=== PATIENT | male | born 1985 | race Caucasian/White ===

== ENCOUNTER 2024-05-06 17:53 | Emergency (ER) | payer OTHER, SELFPAY ==
[2024-05-06 18:40] LABS: PT Prothrombin Time 12.9 SECONDS (9.4-12.5); Protime INR 1.16
[2024-05-06 18:42] LABS: Absolute Lymphocytes (CBC) 0.8 K/uL (0.7-4.9); Absolute Monocytes 0.2 K/uL (0.1-1.3); Absolute Neutrophil 6.8 K/uL (1.8-8.0); Basophils % 0.1 % (0-1.3); Hematocrit 45.5 % (39.6-49.0); Lymphocytes % 10.6 % (15.3-44.8); MCH 32.4 pg (27.0-35.0); MCHC 35.3 g/dL (32.0-36.0); MPV 8.9 fL (7.6-11.3); Monocytes % 2.1 % (3.3-12.3); Neutrophils % 87.2 % (41.7-73.7); Nucleated Red Blood Cells % 0.1 % (0-0); Platelets 243 thou/uL (152-406); RBC Red Blood Cell Count 4.94 M/uL (4.33-5.43); Red Cell Distribution Width 12.8 % (12.1-15.2)
[2024-05-06 18:54] LABS: Albumin 4.1 g/dL (3.4-5.0); Anion Gap 11.9 mEq/L (5.0-15.0); Bilirubin Direct 0.3 mg/dL (0-0.2); Bilirubin Indirect, Calculated 0.7 mg/dL (0.2-0.8); Globulin 4.2 g/dL (2.3-3.5); Potassium 3.9 mEq/L (3.5-5.1); Protein, Total 8.3 g/dL (6.4-8.2); Troponin High Sensitivity 14.9 pg/mL (<58.9)
--- NOTE | 2024-05-06 19:07 | RAD REPORT ---
EXAM: Chest Single View HISTORY: CHEST PAIN COMPARISON: None. FINDINGS: LUNGS/PLEURA: The lungs are clear. No pleural effusions or pneumothorax. No pulmonary edema. MEDIASTINUM: The mediastinal silhouette is within normal limits. CARDIAC: The cardiac silhouette is within normal limits. UPPER ABDOMEN: No significant abnormality. BONES: No acute fracture. LINES/TUBES/OTHER: N/A IMPRESSION: No evidence of acute cardiopulmonary disease.
[2024-05-06] MEDS ORDERED: MAGNES/ALUMIN/SIMET 30ML UCUP ONE (20:05)
[2024-05-06] MEDS ORDERED: ONDANSETRON 4 MG/2 ML VIAL ONE (20:05)
[2024-05-06] MEDS ORDERED: KETOROLAC 30 MG/ML INJ ONE (20:06)
[2024-05-06] MEDS ORDERED: LIDOCAINE VISCOUS 2% 10ML ORAL SOLN ONE (20:06)
[2024-05-06] MEDS ORDERED: NA CHLORIDE 0.9% 1,000 ML ONE (20:06)
--- NOTE | 2024-05-06 21:24 | ER ---
Nurse's Notes [facility] Name: Raj Case Age: 38 yrs Sex: Male : 1985 Arrival Date: 05/06/2024 Time: 17:53 Bed 14 Private MD: Diagnosis: Subsequent non-ST elevation (NSTEMI) myocardial infarction Presentation: 05/06 18:09 Chief complaint: Patient states: c/o left chest pain that radiates to left shoulder me1 with some associated nausea. 5/10 "pressure" that started about 30 minutes ago while having a bowel movement. 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 Coronavirus screen: Vaccine status: Patient reports receiving the 1st dose of the Covid vaccine. Ebola Screen: No symptoms or risks identified at this time. Initial Sepsis Screen: Does the patient meet any 2 criteria? No. Patient's initial sepsis screen is negative. Does the patient have a suspected source of infection? No. Patient's initial sepsis screen is negative. Risk Assessment: Do you want to hurt yourself or someone else? Patient reports no desire to harm self or others. Onset of symptoms was May 06, 2024 at 17:30. 18:09 Method Of Arrival: Ambulatory wa1 18:09 Acuity: AMAURY 3 me1 Triage Assessment: 18:11 General: Appears uncomfortable, well groomed, well developed, well nourished, Behavior me1 is calm, cooperative, appropriate for age. Pain: Complains of pain in anterior aspect of left upper chest Pain radiates to anterior aspect of left shoulder Pain currently is 5 out of 10 on a pain scale. Quality of pain is described as pressure, Pain began suddenly, 30 min ago. Is continuous. EENT: No signs and/or symptoms were reported regarding the EENT system. Neuro: Level of Consciousness is awake, alert, obeys commands, Oriented to person, place, time, situation, Appropriate for age. Cardiovascular: Patient's skin is warm and dry. Respiratory: Airway is patent Respiratory effort is even, unlabored, Respiratory pattern is regular, symmetrical. GI: Reports nausea. : No signs and/or symptoms were reported regarding the genitourinary system. Derm: Skin is intact, is healthy with good turgor, Skin is pink, warm \\T\\ dry. Musculoskeletal: No signs and/or symptoms reported regarding the musculoskeletal system. Historical: - Allergies: 18:11 No Known Allergies; me1 - Home Meds: 18:11 None [Active]; me1 - PMHx: 18:11 None; me1 - PSHx: 18:11 None; me1 - Immunization history:: Adult Immunizations up to date. - Infectious Disease History:: Denies. - Social history:: Smoking status: Patient denies any tobacco usage or history of. Screenin:13 [facility] ED Fall Risk Assessment (Adult) History of falling in the last 3 months, me1 including since admission No falls in past 3 months (0 pts) Confusion or Disorientation No (0 pts) Intoxicated or Sedated No (0 pts) Impaired Gait No (0 pts) Mobility Assist Device Used No (0 pt) Altered Elimination No (0 pt) Score/Fall Risk Level 0 - 2 = Low Risk Maintained a safe environment, Provided non-skid footwear, Hourly rounding (assess needs \\T\\ fall precautionary measures) done. Abuse screen: Denies threats or abuse. Nutritional screening: No deficits noted. Tuberculosis screening: No symptoms or risk factors identified. Assessment: 18:13 General: See triage assessment.. me1 19:10 General: Appears in no apparent distress. comfortable, Behavior is calm, cooperative, rg5 appropriate for age. 19:10 Pain: Complains of pain in chest Pain currently is 3 out of 10 on a pain scale. Quality rg5 of pain is described as pressure. Neuro: Level of Consciousness is awake, alert, obeys commands, Oriented to person, place, time. Cardiovascular: Reports chest pain. Respiratory: Airway is patent Trachea midline Respiratory effort is even, unlabored, Respiratory pattern is regular, symmetrical. GI: Abdomen is round non-distended, obese. : No signs and/or symptoms were reported regarding the genitourinary system. EENT: No deficits noted. Derm: No deficits noted. Skin is intact, Skin is dry, Skin is normal, Skin temperature is warm. Musculoskeletal: Circulation, motion, and sensation intact. Capillary refill < 3 seconds, Range of motion: intact in all extremities. 20:30 Reassessment: Patient and/or family updated on plan of care and expected duration. Pain rg5 level reassessed. Patient is alert, oriented x 3, equal unlabored respirations, skin warm/dry/pink. Patient states feeling better. Patient states symptoms have improved. 21:24 Pain: Denies pain. rg5 21:25 Reassessment: Patient is alert, oriented x 3, equal unlabored respirations, skin rg5 warm/dry/pink. Patient states feeling better. Patient states symptoms have improved. 22:00 Reassessment: TROPONIN WAS HIGH AND HE WAS CALLED BACK TO ER. rg5 22:00 General: Appears in no apparent distress. comfortable, Behavior is calm, cooperative, rg5 appropriate for age. 22:00 Pain: Denies pain. Neuro: Level of Consciousness is awake, alert, obeys commands, rg5 Oriented to person, place, time. Cardiovascular: Denies chest pain. Respiratory: Airway is patent Trachea midline Respiratory effort is even, unlabored, Respiratory pattern is regular, symmetrical. GI: Abdomen is non-distended, obese. : No signs and/or symptoms were reported regarding the genitourinary system. EENT: No deficits noted. Derm: Skin is intact, Skin is normal, Skin temperature is warm. Musculoskeletal: Circulation, motion, and sensation intact. Capillary refill < 3 seconds, Range of motion: intact in all extremities. 23:30 Reassessment: No changes from previously documented assessment. Patient and/or family rg5 updated on plan of care and expected duration. Pain level reassessed. Patient is alert, oriented x 3, equal unlabored respirations, skin warm/dry/pink. 05/07 00:30 Reassessment: Patient and/or family updated on plan of care and expected duration. Pain rg5 level reassessed. Patient is alert, oriented x 3, equal unlabored respirations, skin warm/dry/pink. 00:30 Pain: Denies pain. rg5 Vital Signs: 05/06 18:09 BP 153 / 91; Pulse 94; Resp 18; Temp 98.8; Pulse Ox 99% ; Weight 145.15 kg; Height 6 me1 ft. 2 in. ; Pain 5/10; 19:15 BP 96 / 61; Pulse 75; Resp 18; Pulse Ox 97% on R/A; Pain 3/10; rg5 20:30 BP 128 / 85; Pulse 74; Resp 17; Pulse Ox 96% on R/A; Pain 2/10; rg5 21:10 BP 121 / 80; Pulse 75; Resp 17; Temp 98; Pulse Ox 99% on R/A; Pain 0/10; rg5 22:00 BP 146 / 88; Pulse 87; Resp 17; Temp 98; Pulse Ox 99% on R/A; Pain 0/10; rg5 22:28 Weight 141.2 kg; vc1 23:40 BP 145 / 88; Pulse 74; Resp 17; Temp 98(O); Pulse Ox 99% on R/A; Pain 0/10; rg5 18:09 Body Mass Index 41.09 (141.20 kg, 187.96 cm) me1 18:09 Pain Scale: Adult me1 19:15 Pain Scale: Adult rg5 20:30 Pain Scale: Adult rg5 21:10 Pain Scale: Adult rg5 22:00 Pain Scale: Adult rg5 23:40 Pain Scale: Adult rg5 ED Course: 17:55 Patient arrived in ED. ra3 18:05 Kaylan Arevalo, RN is Primary Nurse. me1 18:11 Triage completed. me1 18:11 Arm band placed on Patient placed in an exam room. me1 18:13 Patient has correct armband on for positive identification. Bed in low position. Call me1 light in reach. Side rails up X2. Provided Education on: POC. Verbalized understanding.. Client placed on continuous cardiac and pulse oximetry monitoring. NIBP monitoring applied. caramel coloring operator on. Pulse ox on. NIBP on. 18:13 No provider procedures requiring assistance completed. Patient maintains SpO2 me1 saturation greater than 95% on room air. 18:20 Inserted saline lock: 22 gauge in left hand, using aseptic technique. Blood collected. nh2 Flushed with 10 mL NS. 18:21 Basic Metabolic Panel Sent. nh2 18:21 CBC with Diff Sent. nh2 18:21 LFT's Sent. nh2 18:21 NT PRO-BNP Sent. nh2 18:21 PT-INR Sent. nh2 18:21 Troponin HS Sent. nh2 18:28 Vj Elmore FNP-C is PHCP. dr5 18:28 José Luis Scott MD is Attending Physician. dr5 18:56 XRAY Chest (1 view) In Process Unspecified. EDMS 21:25 IV discontinued, bleeding controlled, No redness/swelling at site. Pressure dressing rg5 applied. 21:53 Attending Physician role handed off by José Luis Scott MD dr5 21:53 Primary Nurse role handed off by Kaylan Arevalo, MISAEL dr5 21:54 Cameron Henry, MISAEL is Primary Nurse. rg5 22:00 Client placed on continuous cardiac and pulse oximetry monitoring. NIBP monitoring rg5 applied. caramel coloring operator on. Pulse ox on. NIBP on. Door closed. Noise minimized. Warm blanket given. Pillow given. Verbal reassurance given. 22:00 Inserted saline lock: 20 gauge in right antecubital area, using aseptic technique. rg5 Blood collected. Flushed with 10 mL NS. 22:07 Leobardo Lee MD is Attending Physician. dr5 22:28 Inserted saline lock: 22 gauge in left forearm, using aseptic technique. Flushed with vc1 10 mL NS. Administered Medications: 20:00 Drug: NS 0.9% IV 1000 ml IV at 1000 ml once; to be given as a bolus over 60 minutes rg5 Route: IV; Rate: 1000 ml; Site: left antecubital; 21:17 Follow up: IV Status: Completed infusion; IV Intake: 1000ml rg5 20:00 Drug: Ketorolac IVP 15 mg IVP once Route: IVP; Site: left antecubital; rg5 21:16 Follow up: Response: No adverse reaction; Pain is decreased rg5 20:00 Drug: Ondansetron IVP 4 mg IVP once; over 2 minutes Route: IVP; Site: left antecubital; rg5 21:16 Follow up: Response: No adverse reaction rg5 20:15 Drug: GI Cocktail without - (Maalox PO 30 ml, Lidocaine Mucous Membrane 2 % 15 rg5 ml) PO once Route: PO; 21:16 Follow up: Response: No adverse reaction rg5 22:13 Drug: Aspirin PO 324 mg PO once Route: PO; rg5 22:59 Follow up: Response: No adverse reaction rg5 22:40 Drug: Heparin ([place] Drip) 12 units/kg/[place] - ([place] [address] units, D5W IV 500 ml) IV at rg5 calculated rate Per protocol; Max initial rate 1000 units/hr {Co-Signature: jj7 (Livia Crawley RN).} Route: IV; Rate: calculated rate; Site: right antecubital; 22:43 Drug: Heparin (AZ-Bolus No thrombolytic) - HEParin IVP 60 units/kg IVP once; Max 5000 rg5 units {Co-Signature: jj7 (Livia Crawley RN).} Route: IVP; Site: left antecubital; 22:59 Follow up: Response: No adverse reaction rg5 23:19 Drug: Ativan IVP 0.5 mg IVP once Route: IVP; Site: left forearm; rg5 Medication: 18:13 VIS not applicable for this client. me1 Intake: 21:17 IV: 1000ml; Total: 1000ml. rg5 Outcome: 21:23 Discharge ordered by MD. dr5 21:25 Discharged to home ambulatory, rg5 21:25 Condition: stable 21:25 Discharge instructions given to patient, family, Instructed on discharge instructions, Demonstrated understanding of instructions, follow-up care, medications, Prescriptions given X 1, 21:30 Patient left the ED. rg5 23:03 ER care complete, transfer ordered by MD. dr5 05/07 00:57 Patient left the ED. rg5 Signatures: Dispatcher [employer] EDHilary Pereyra RN RN vc1 Kaylan Arevalo RN RN wa1 Phyllis Allison 3 Cameron Henry, MISAEL RN rg5 Tremayne Ham, Vj Kee, TILE INSTALLER-C TILE INSTALLER-Cdr5 Livia Crawley RN jj7 Corrections: (The following items were deleted from the chart) 05/06 22:36 22:28 141.9 kg; vc1 vc1
--- NOTE | 2024-05-06 21:24 | EDPHYS ---
Physician Documentation [facility] Name: Raj Case Age: 38 yrs Sex: Male : 1985 Arrival Date: 05/06/2024 Time: 17:53 Bed 14 Private MD: ED Physician Leobardo Lee HPI: 05/06 21:58 This 38 yrs old Male presents to ER via Ambulatory with complaints of Chest dr5 Pain. 21:58 Onset: The symptoms/episode began/occurred today, at 17:30. Associated signs and dr5 symptoms: The patient has no apparent associated signs or symptoms. Patient is a 38-year-old male with no past medical history coming in with chest pain that started while having a bowel movement today. Patient reports he was going to the bathroom after eating canes chicken strips. Patient denies any medical problems or any daily medications.. Historical: - Allergies: 18:11 No Known Allergies; me1 - Home Meds: 18:11 None [Active]; me1 - PMHx: 18:11 None; me1 - PSHx: 18:11 None; me1 - Immunization history:: Adult Immunizations up to date. - Infectious Disease History:: Denies. - Social history:: Smoking status: Patient denies any tobacco usage or history of. ROS: 21:58 Constitutional: as per hpi dr5 Exam: 21:58 Constitutional: This is a well developed, well nourished patient who is awake, alert, dr5 and in no acute distress. Head/Face: Normocephalic, atraumatic. Neck: Trachea midline, no thyromegaly or masses palpated, and no cervical lymphadenopathy. Supple, full range of motion without nuchal rigidity, or vertebral point tenderness. No Meningismus. Chest/axilla: Normal chest wall appearance and motion. Nontender with no deformity. No lesions are appreciated. Cardiovascular: Regular rate and rhythm with a normal S1 and S2. Normal PMI, no JVD. No pulse deficits. Respiratory: Lungs have equal breath sounds bilaterally, clear to auscultation. No rales, rhonchi or wheezes noted. No increased work of breathing, no retractions or nasal flaring. Back: No spinal tenderness. No costovertebral tenderness. Full range of motion. Skin: Warm, dry with normal turgor. Normal color with no rashes, no lesions, and no evidence of cellulitis. Neuro: Awake and alert, GCS 15, oriented to person, place, time, and situation. Cranial nerves II-XII grossly intact. Motor strength 5/5 in all extremities. Sensory grossly intact. Cerebellar exam normal. Normal gait. 22:13 ECG was reviewed by the Attending Physician. dr5 Vital Signs: 18:09 BP 153 / 91; Pulse 94; Resp 18; Temp 98.8; Pulse Ox 99% ; Weight 145.15 kg; Height 6 me1 ft. 2 in. ; Pain 5/10; 19:15 BP 96 / 61; Pulse 75; Resp 18; Pulse Ox 97% on R/A; Pain 3/10; rg5 20:30 BP 128 / 85; Pulse 74; Resp 17; Pulse Ox 96% on R/A; Pain 2/10; rg5 21:10 BP 121 / 80; Pulse 75; Resp 17; Temp 98; Pulse Ox 99% on R/A; Pain 0/10; rg5 22:00 BP 146 / 88; Pulse 87; Resp 17; Temp 98; Pulse Ox 99% on R/A; Pain 0/10; rg5 22:28 Weight 141.2 kg; vc1 23:40 BP 145 / 88; Pulse 74; Resp 17; Temp 98(O); Pulse Ox 99% on R/A; Pain 0/10; rg5 18:09 Body Mass Index 41.09 (141.20 kg, 187.96 cm) me1 18:09 Pain Scale: Adult me1 19:15 Pain Scale: Adult rg5 20:30 Pain Scale: Adult rg5 21:10 Pain Scale: Adult rg5 22:00 Pain Scale: Adult rg5 23:40 Pain Scale: Adult rg5 MDM: 18:28 Medical Screening Exam initiated dr5 21:58 Differential diagnosis: STEMI, NSTEMI, CHF, GERD. Data reviewed: vital signs, nurses dr5 notes. Consideration of Admission/Observation Patient was admitted/placed on observation. ED course: After medication, patient reported that he was feeling better and chest pain free and didn't want to stay for results. Pt wanted to be called if blood work was elevated. Troponin came back elevated and was called back to be admitted.. 23:05 ED course: [facility] and got acceptance for transfer.. dr5 23:06 Awaiting:. 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 12 00:50 ED course: Patient transferred to [facility] CCU on heparin drip. Stable prior to transfer..dr5 12 18:14 Order name: Basic Metabolic Panel; Complete Time: 19:23 rn 05/06 18:14 Order name: CBC with Diff; Complete Time: 21:43 rn 05/06 18:14 Order name: LFT's; Complete Time: 19:23 rn 05/06 18:14 Order name: NT PRO-BNP; Complete Time: 19:23 rn 05/06 18:14 Order name: PT-INR; Complete Time: 18:41 rn 05/06 18:14 Order name: Troponin HS; Complete Time: 19:23 rn 05/06 20:50 Order name: Troponin High Sensitivity; Complete Time: 22:13 [facility] 05/06 22:16 Order name: Ptt, Activated; Complete Time: 22:30 [facility] 05/06 18:14 Order name: XRAY Chest (1 view); Complete Time: 19:23 rn 05/06 18:14 Order name: EKG; Complete Time: 18:14 rn 05/06 18:14 Order name: Cardiac monitoring; Complete Time: 18:14 rn 05/06 18:14 Order name: EKG - Nurse/Tech; Complete Time: 18:14 rn 05/06 18:14 Order name: IV Saline Lock; Complete Time: 18:21 rn 05/06 18:14 Order name: Labs collected and sent; Complete Time: 18:21 rn 05/06 18:14 Order name: O2 Per Protocol; Complete Time: 18:14 rn 05/06 18:14 Order name: O2 Sat Monitoring; Complete Time: 18:14 rn 05/06 22:06 Order name: EKG - Nurse/Tech; Complete Time: 22:17 vc1 EC/07 18:12 Rate is 101 beats/min. Rhythm is regular. QRS [place] is Normal. RI interval is normal at dr5 160 msec. QRS interval is normal at 98 msec. QT interval is normal at 344 msec. 22:13 Rate is 83 beats/min. Rhythm is regular. QRS [place] is Normal. RI interval is normal at dr5 164 msec. QRS interval is normal at 100 msec. Administered Medications: 20:00 Drug: NS 0.9% IV 1000 ml IV at 1000 ml once; to be given as a bolus over 60 minutes rg5 Route: IV; Rate: 1000 ml; Site: left antecubital; 21:17 Follow up: IV Status: Completed infusion; IV Intake: 1000ml rg5 20:00 Drug: Ketorolac IVP 15 mg IVP once Route: IVP; Site: left antecubital; rg5 21:16 Follow up: Response: No adverse reaction; Pain is decreased rg5 20:00 Drug: Ondansetron IVP 4 mg IVP once; over 2 minutes Route: IVP; Site: left antecubital; rg5 21:16 Follow up: Response: No adverse reaction rg5 20:15 Drug: GI Cocktail without - (Maalox PO 30 ml, Lidocaine Mucous Membrane 2 % 15 rg5 ml) PO once Route: PO; 21:16 Follow up: Response: No adverse reaction rg5 22:13 Drug: Aspirin PO 324 mg PO once Route: PO; rg5 22:59 Follow up: Response: No adverse reaction rg5 22:40 Drug: Heparin ([place] Drip) 12 units/kg/[place] - ([place] [address] units, D5W IV 500 ml) IV at rg5 calculated rate Per protocol; Max initial rate 1000 units/hr {Co-Signature: selma (Livia Crawley RN).} Route: IV; Rate: calculated rate; Site: right antecubital; 22:43 Drug: Heparin ([place]-Bolus No thrombolytic) - HEParin IVP 60 units/kg IVP once; Max 5000 rg5 units {Co-Signature: selma (Livia Crawley RN).} Route: IVP; Site: left antecubital; 22:59 Follow up: Response: No adverse reaction rg5 23:19 Drug: Ativan IVP 0.5 mg IVP once Route: IVP; Site: left forearm; rg5 Disposition Summary: 05/06/24 23:03 Transfer Ordered Notes: Transfer Location: [facility] dr5 Reason: Higher level of care dr5 Condition: Stable(05/06/24 23:03) dr5 Problem: new dr5 Symptoms: are unchanged dr5 Accepting Physician: [facility] Physician(05/07/24 00:57) rg5 Diagnosis - Subsequent non-ST elevation (NSTEMI) myocardial infarction dr5 Forms: - Medication Reconciliation Form dr5 - SBAR form dr5 Addendum: 05/08/2024 19:23 Co-signature as Attending Physician, José Luis Scott MD I reviewed the patient's care r n provided by the Advanced Practice Provider and agree with the diagnosis and treatment plan. Signatures: Dispatcher [employer] [facility] José Luis Scott MD MD rn Calcote, Vanessa, RN RN vc1 Kaylan Arevalo RN RN me1 Leobardo Lee MD MD ec2 Cameron Henry RN RN rg5 Vj Elmore, RADIO PRODUCER-C RADIO PRODUCER-Cdr5 Livia Crawley RN jj7 Corrections: (The following items were deleted from the chart) 05/06 21:53 21:23 [address] dr5 dr5 21:53 21:23 Stable dr5 dr5 21:53 21:23 Chest pain, unspecified dr5 dr5 22:16 22:16 PTT, ACTIVATED+COAG.LAB.BRZ ordered. [facility] 05/07 00:57 05/06 23:03 [facility] Physician dr5 rg5
[2024-05-06 21:41] LABS: Blood Morphology Comment NOT SEEN (NOT SEEN); Platelet Estimate ADEQ; White Blood Cell Scan OK (OK)
[2024-05-06] MEDS ORDERED: ASPIRIN 81 MG CHEWABLE TABLET ONE (22:02)
[2024-05-06] MEDS ORDERED: HEPARIN/D5W 25,000 UNIT/500 ML BAG IV ONE (22:26)
[2024-05-06] MEDS ORDERED: HEPARIN 5000 UNIT/ML 1 ML VIAL ONE (22:26)
[2024-05-06] MEDS ORDERED: LORazepam 2 MG/ML VIAL ONE (23:14)
[2024-05-07 03:43] VITALS: TEMP 98
[2024-05-07 07:01] VITALS: BP 124/73; O2SAT 98
== END 2024-05-07 00:57 | disposition short-term general hospital (02) ==
LOC: ER 17:53
DX: I22.2 Subsequent non-ST elevation (NSTEMI) myocardial infarction (principal); I21.9 Acute myocardial infarction, unspecified
CPT/HCPCS: 36415; 71045; 80048; 80076; 83880; 84484; 85025; 85610; 85730; 99285; J1644; J2405; J7030